=== PATIENT | female | born 1960 ===

== ENCOUNTER 2025-04-03 05:28 | Day surgery (SDC) | payer OTHER ==
[2025-03-28 14:35] VITALS: BP 121/74
[~2025-04-03] VITALS: Ht 157.5 cm; Wt 58.5 kg
[~2025-04-03 05:28] MED LIST: ASA81 MG PO; CALTRATE; CRESTOR40 MG; VITAMIN D310 MCG/1 M PO; ZOLOFT100 MG PO
[2025-04-03] MEDS ORDERED: HEMOSTATIC MATRIX 1 KIT KIT TOP ONE (07:18)
[2025-04-03] MEDS ORDERED: LIDOCAINE HCL 1%/EPINEPHRINE 20ML VIAL IJ ONE (07:18)
[2025-04-03] MEDS ORDERED: BUPIVACAINE HCL/Mpf 0.5% 10ML VIAL ONE (07:18)
[2025-04-03] MEDS ORDERED: DIBUCAINE 30 GM TUBE ONE (07:28)
[2025-04-03] MEDS ORDERED: BUPIVACAINE LIPOSOME/PF 266 MG/20 ML VIAL IJ ONE (07:32)
[2025-04-03] MEDS ORDERED: BUPIVACAINE HCL/MPF 0.5% 30ML VIAL ONE (07:44)
[2025-04-03] MEDS ORDERED: POVIDONE-IODINE 118 ML BOTT TOP ONE (08:15)
[2025-04-03] MEDS ORDERED: CEFTRIAXONE SODIUM 2,000 MG VIAL IV ONE (08:15)
[2025-04-03] MEDS ORDERED: METRONIDAZOLE/SODIUM CHLORIDE 500 MG/100 ML PIGGYBACK IV ONE (08:15)
[2025-04-03] MEDS ORDERED: INTESTINEX680 M1 PO (09:35)
[2025-04-03] MEDS ORDERED: NEURONTIN300 MG PO (09:35)
[2025-04-03] MEDS ORDERED: CELECOXIB200 MG PO (09:35)
[2025-04-03] MEDS ORDERED: PERCOCET 5-3251 EACH PO (09:36)
== END 2025-04-03 13:35 | disposition home or self-care (01) ==
LOC: CIR.AMB 05:28
PROVIDERS: ATTEND Surgery
DX: K64.3 Fourth degree hemorrhoids (principal); K64.4 Residual hemorrhoidal skin tags; K59.09 Other constipation